=== PATIENT | male | born 1955 | race American Indian/Alaskan Native ===

== ENCOUNTER 2017-08-10 14:38 | Emergency (ER) | payer SELFPAY ==
[2017-08-10] MEDS ORDERED: FIORICET PO ONE (20:55)
[2017-08-10 21:32] LABS: Hematocrit 47.2 % (35.5-45.6); Hemoglobin 15.8 gm/dl (11.8-15.2); Mean Corpuscular HGB Conc 33 % (32-34); Mean Corpuscular Hemoglobin 30 pg (28-32); Mean Corpuscular Volume 89 fl (84-94); Platelet Count 178 K/mm3 (140-440); Red Blood Count 5.29 M/mm3 (3.65-5.03); Red Cell Distribution Width 13.3 % (13.2-15.2); White Blood Count 5.4 K/mm3 (4.5-11.0)
--- NOTE | 2017-08-10 21:41 | Cat Scan Report ---
FINAL REPORT PROCEDURE: CT HEAD/BRAIN WO CON TECHNIQUE: Computerized tomography of the head was performed without contrast material. HISTORY: constant headache COMPARISON: No prior studies are available for comparison. FINDINGS: Skull and scalp: Normal. Paranasal sinuses: Normal. Ventricles and subarachnoid spaces: Normal. Cerebrum: No evidence of hemorrhage, acute infarction or mass . Cerebellum and brainstem: No evidence of hemorrhage, acute infarction or mass. Vasculature: Normal. Comments: None. IMPRESSION: Normal Examination
[2017-08-10 21:56] LABS: Anion Gap 17 mmol/L; BUN/Creatinine Ratio 11.66; Blood Urea Nitrogen 7 mg/dL (9-20); Calcium 9.2 mg/dL (8.4-10.2); Carbon Dioxide 29 mmol/L (22-30); Chloride 99.3 mmol/L (98-107); Glucose 100 mg/dL (75-100); Sodium 141 mmol/L (137-145)
[2017-08-10] MEDS ORDERED: TYLENOL #3 PO ONE (22:04)
[2017-08-10 22:06] LABS: C-Reactive Protein < 0.03 mg/dL (0.00-1.30)
[2017-08-10 23:42] VITALS: BP 154/100
--- NOTE | 2017-08-11 00:02 | Emergency Department Report ---
ED Headache HPI - General Chief Complaint: Headache Stated Complaint: Ringing in ears, light headed, headache Source: patient Exam Limitations: no limitations - History of Present Illness Initial Comments: 62 year old male presents to ED with constant headache at top of head [id number] and intermittent ringing in ears. patient is stable, neurologically intact and in no acute distress. patient is alert to person, place, time and self. patient denies dizziness, N/V, syncope, altered vision, weakness. patient states he was seen in PCP office 2 days ago for similar symptoms and prescribed loratadine and fluticasone for decongestion. patient is ambulatory with normal observed gait. Timing/Duration: constant, other (2 weeks) Quality: mild, constant Head Injury Location: frontal, parietal Associated Symptoms: denies: confusion, fatigue, facial pain, fever/chills, loss of consciousness, nausea/vomiting, numbness in legs/feet, seizures, stiff neck, vision changes, weakness Allergies/Adverse Reactions: Allergies No Known Allergies Allergy (Verified 06/29/14 06:20) Home Medications: Ambulatory Orders Lisinopril [Zestril TAB] 20 mg PO QDAY #30 tablet 06/29/14 Butalb/Acetaminophen/Caffeine [Fioricet 50-300-40 mg CAP] 1 cap PO Q8HR PRN #9 cap 08/10/17 ED Review of Systems ROS: Stated complaint: Ringing in ears, light headed, headache Other details as noted in HPI Constitutional: denies: chills, fever, weakness Eyes: denies: eye pain, eye discharge, vision change ENT: denies: ear pain, throat pain, hearing loss Respiratory: denies: cough, shortness of breath, wheezing Cardiovascular: denies: chest pain, palpitations Endocrine: no symptoms reported Gastrointestinal: denies: abdominal pain, nausea, vomiting, diarrhea Genitourinary: denies: urgency, dysuria Musculoskeletal: denies: back pain, joint swelling, arthralgia Skin: denies: rash, lesions Neurological: headache. denies: weakness, numbness, paresthesias, confusion, abnormal gait, vertigo Psychiatric: denies: anxiety, depression Hematological/Lymphatic: denies: easy bleeding, easy bruising ED Past Medical Hx - Past Medical History Previous Medical History?: Yes Hx Hypertension: Yes (no meds) Additional medical history: hernia - Surgical History Past Surgical History?: Yes Additional Surgical History: bleeding ulcer - Social History Smoking Status: Never Smoker Substance Use Type: Alcohol - Medications Home Medications: Home Medications Medication Instructions Recorded Confirmed Last Taken Type Lisinopril [Zestril TAB] 20 mg PO QDAY #30 tablet 06/29/14 Unknown Rx Butalb/Acetaminophen/Caffeine 1 cap PO Q8HR PRN #9 cap 08/10/17 Unknown Rx [Fioricet 50-300-40 mg CAP] ED Physical Exam - General Limitations: No Limitations General appearance: alert, in no apparent distress - Head Head exam: Present: atraumatic, normocephalic, normal inspection - Eye Eye exam: Present: normal appearance, EOMI Pupils: Present: normal accommodation - ENT ENT exam: Present: normal exam, mucous membranes moist, TM's normal bilaterally - Neck Neck exam: Present: normal inspection, full ROM. Absent: tenderness - Respiratory Respiratory exam: Present: normal lung sounds bilaterally. Absent: respiratory distress, wheezes, rales, rhonchi - Cardiovascular Cardiovascular Exam: Present: regular rate, normal rhythm. Absent: systolic murmur, diastolic murmur, rubs, gallop - GI/Abdominal GI/Abdominal exam: Present: soft, normal bowel sounds. Absent: distended, tenderness, guarding, rebound - Rectal Rectal exam: Present: deferred - Extremities Exam Extremities exam: Present: normal inspection - Back Exam Back exam: Present: normal inspection, full ROM - Neurological Exam Neurological exam: Present: alert, oriented X3, normal gait - Expanded Neurological Exam Expanded Neurological exam: Absent: innattentive, protecting the airway Patient oriented to: Present: person, place, time Speech: Present: fluid speech Cranial nerves: EOM's Intact: Normal, Tongue Deviation: Normal, Facial Sensation : Normal Cerebellar function: Finger to Nose: Normal Upper motor neuron: Pronator Drift: Normal Sensory exam: Upper Extremity Light Touch: Normal, Lower Extremity Light Touch: Normal Motor strength exam: RUE: 5, LUE: 5, RLE: 5, LLE: 5 DTR: knee (R): 2+, knee (L): 2+ Best Eye Response ([place]): (4) open spontaneously Best Motor Response ([place]): (6) obeys commands Best Verbal Response ([place]): (5) oriented [place] Total: 15 - Psychiatric Psychiatric exam: Present: normal affect, normal mood - Skin Skin exam: Present: warm, dry, intact, normal color. Absent: rash ED Course Vital Signs 08/10/17 08/10/17 08/10/17 15:35 20:45 22:14 Temperature 98.3 F Pulse Rate 90 Respiratory 16 16 17 Rate Blood Pressure 153/91 Blood Pressure [Right] O2 Sat by Pulse 98 98 Oximetry 08/10/17 23:30 Temperature 98.8 F Pulse Rate 73 Respiratory 16 Rate Blood Pressure Blood Pressure 154/100 [Right] O2 Sat by Pulse 97 Oximetry ED Medical Decision Making - Lab Data Result diagrams: 08/10/17 21:19 08/10/17 21:19 Labs 08/10/17 08/10/17 21:19 21:19 WBC 5.4 RBC 5.29 H Hgb 15.8 H Hct 47.2 H MCV 89 MCH 30 MCHC 33 RDW 13.3 Plt Count 178 Sodium 141 Potassium 4.0 Chloride 99.3 Carbon Dioxide 29 Anion Gap 17 BUN 7 L Creatinine 0.6 L Estimated GFR > 60 BUN/Creatinine Ratio 11.66 Glucose 100 Calcium 9.2 C-Reactive Protein < 0.03 - Radiology Data Radiology results: report reviewed CT brain Normal examination. - Medical Decision Making 62 year old male presents to ED with headache and intermittent ringing in ears. patient is stable, neurologically intact and in no acute distress. patient ambulatory with normal observed gait. patient is alert to person place time and self. patient has normal CT scan of brain, normal WBC and normal CRP level. patient has decreased pain with medication administered during ED visit. Critical care attestation.: If time is entered above; I have spent that time in minutes in the direct care of this critically ill patient, excluding procedure time. ED Disposition Clinical Impression: Headache on top of head Disposition: DC-01 TO HOME OR SELFCARE Is pt being admited?: No Does the pt Need Aspirin: No Condition: Stable Instructions: Acute Headache (ED) Additional Instructions: [facility] of [facility] in the [place], [place] Address: [address], [place] [address] Hours: Closed now [facility] Neurologist in the [place], [place] Address: [address] [place] [address] [address], [place] [address] Hours: Open today 8AM5PM Prescriptions: Butalb/Acetaminophen/Caffeine [Fioricet 50-300-40 mg CAP] 1 cap PO Q8HR PRN #9 cap PRN Reason: Pain Referrals: AL CARDONA MD [Primary Care Provider] - 3-5 Days
== END 2017-08-10 23:30 | disposition home or self-care (01) ==
LOC: ED 14:38
DX: R51 Headache (principal); H93.13 Tinnitus, bilateral; I10 Essential (primary) hypertension
CPT/HCPCS: 36415; 70450; 80048; 85027; 86140; 99284